=== PATIENT | male | born 1990 | race Caucasian/White ===

== ENCOUNTER 2017-04-17 08:54 | Emergency (ER) | payer SELFPAY ==
--- NOTE | 2017-04-17 09:19 | ERNOTE ---
Syncope ER HPI Stated Complaint: PASSED OUT Source: patient Exam Limitations: no limitations Immunizations: IMMUNIZATION HX Immunizations Up to Date No History of Influenza Vaccine No Hx Pneumococcal Vaccination No Allergies/Adverse Reactions: Allergies No Known Allergies Allergy (Verified 04/17/17 09:32) Home Medications: HOME MEDICATIONS NK [No Home Medication] 04/17/17 [Last Taken Unknown] - History of Present Illness Narrative: Patient has had recurrent syncopal episodes over the last three days. He does not feel the episodes coming on, does not remember what happens before but finds himself waking up on the floor in a different room. He lives by himself and nobody has observed the episodes, not sure how long he might be out, this never happened to him prior. Episodes have not occurred at work. 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 for two weeks he has had intermittent right sided chest pain, work with palpation and laying on that side. Symptoms prior to episode: Present: unknown Location of Injury: Present: none Current Symptoms: Present: back to normal Prior Treament: Denies: similar symptoms before Review of Systems - Review of Systems Constitutional: Absent: recent illness, fever EYE: Absent: vision changes ENT: Absent: nose congestion, sore throat Respiratory: Absent: shortness of breath, cough Cardiology: Present: See HPI, chest pain. Absent: palpitations Gastrointestinal/Abdominal: Absent: nausea, vomiting, diarrhea, abdominal pain Genitourinary: Present: no symptoms reported Musculoskeletal: Absent: back pain, neck pain Skin: Absent: rash Neurological: Absent: headache, weakness, numbness - Patient's Past Medical History Patient History - Medical: No pertinent hx Patient History - Cardiac/Respiratory: No pertinent hx Patient History - Cancer: No Hx of Cancer Patient History - Surgical Procedures: Other Patient History - Other: None - Family History Mother Family History - Medical: No pertinent hx Father Family History - Medical: No pertinent hx - Social History Living Situations: home Abuse History: No History of abuse Psych History: No pertinent hx Smoking Status: Current every day smoker Alcohol Use: occasionally Drug Use: none - Immunizations Immunizations Up to Date: No Hx Pneumococcal Vaccination: No History of Influenza Vaccine: No Physical Exam - Physical Exam General Appearance: Present: wd/wn, alert, no apparent distress Head Exam: Present: normal inspection, no evidence of injury Eye Exam: Normal inspection: bilateral, PERRL: bilateral Ears, Nose, Throat: Present: normal ENT inspection, normal pharynx Neck: Present: normal inspection, nontender, supple, full range of motion Respiratory: Present: no respiratory distress, no accessory muscle use, lungs clear, decreased breath sounds Cardiovascular/Chest: Present: regular rate, rhythm, no murmur Gastrointestinal/Abdominal: Present: normal bowel sounds, nontender, nondistended, soft Neurological Exam: Present: alert, oriented, normal mood/affect, no motor/ sensory deficits Skin Exam: Present: normal color, warm/dry ED Progress - Results and Orders Patient's Lab Results:: I have reviewed the patient's lab results. - Vital Signs Patient's Vital Signs:: I have reviewed the patient's vital signs. Vital Signs: Vital Signs 04/17/17 08:56 Temperature 37.0 C Pulse Rate 74 Respiratory 16 Rate Blood Pressure 122/89 O2 Sat by Pulse 100 Oximetry - EKG EKG: NSR, other - ST elevation, probably early repolarisation, similar to 05/2016 EKG read: Interp. by me - X-Ray X-Ray #1 X-Ray: chest - hyperinflated, no acute Interpretation: Reviewed by me - Progress/Reassessment Chief Complaint: Syncopal Episode Progress Note-Subjective: 04/17/17 11:03 discussed results with patient and family, patient has had no symptoms 04/17/17 11:06 message to family medicine clinic to get appointment, will call back after talking to Sera Ponce Departure Clinical Impression: Syncope Qualifiers: Syncope type: unspecified Qualified Code(s): R55 - Syncope and collapse - Departure Disposition: Home self-care Condition: Good Instructions: Syncope, [id number], Form - Excuse from Work, School, or Physical Activity Additional Instructions: we will try to get you an appointment in the family medicine clinic
--- OUTSIDE RECORDS SUMMARY | 2017-04-17 09:29 | XMS REPORT | CCD ---
:1990 Author Name SALUD TORRES Address [address] Unavailable [place], [place] [id number] Care Team Providers Name Role Phone LINDA NATHAN Attending Physician Unavailable Vital Signs Unknown or Not Available. Allergies Allergy Code Allergy Type Reaction Status No Known Drug Allergies 0 No known drug allergies Active Procedures Procedure Code Procedure Type Date SKEL XRAY-ANKLE & FOOT 8828 ICD-9 CM, Volume 3 01/19/2015 ANKLE 3VWS LT [id number] SNOMED CT 01/19/2015 History of Immunizations Unknown or Not Available. Problems Unknown or Not Available. Results Unknown or Not Available. Active Medications Unknown or Not Available. Medications Administered During Visit Unknown or Not Available. Encounters Encounter Diagnosis Diagnosis Code Start Date JOINT PAIN-ANKLE 58510 01/19/2015 Social History Smoking Status Code Start Date End Date Current every day smoker [id number] 09/30/1999 Patient Decision Aids Unknown or Not Available. Discharge Instructions You were admitted to [facility] on 01/19/2015 with a principal diagnosis of JOINT PAIN-ANKLE. You had the following procedures done:SKEL XRAY-ANKLE & FOOT You were discharged from [facility] on 01/19/2015. Should you have any questions prior to discharge, please contact a member of your healthcare team. If you have left the hospital and have any questions, please contact your primary care physician. Chief Complaint and Reason For Visit Unknown or Not Available. Function Status Unknown or Not Available. Plan of Care Unknown or Not Available. Referral/Transition of Care Unknown or Not Available.
--- OUTSIDE RECORDS SUMMARY | 2017-04-17 09:29 | XMS REPORT | CCD ---
:1990 Author Name SALUD TORRES Address [address] Unavailable [place], [place] [id number] Care Team Providers Name Role Phone LINDA NATHAN Attending Physician Unavailable Vital Signs Unknown or Not Available. Allergies Allergy Code Allergy Type Reaction Status No Known Drug Allergies 0 No known drug allergies Active Procedures Procedure Code Procedure Type Date SKEL XRAY-WRIST & HAND 8823 ICD-9 CM, Volume 3 06/23/2015 WRIST 3 VWS [address] [id number] SNOMED [address] 06/23/2015 History of Immunizations Unknown or Not Available. Problems Unknown or Not Available. Results Unknown or Not Available. Active Medications Unknown or Not Available. Medications Administered During Visit Unknown or Not Available. Encounters Encounter Diagnosis Diagnosis Code Start Date JOINT PAIN-FOREARM [id number] 06/23/2015 Social History Smoking Status Code Start Date End Date Current every day smoker [id number] 09/30/1999 Patient Decision Aids Unknown or Not Available. Discharge Instructions You were admitted to [facility] on 06/23/2015 with a principal diagnosis of JOINT PAIN-FOREARM. You had the following procedures done:SKEL XRAY-WRIST & HAND You were discharged from [facility] on 06/23/2015. Should you have any questions prior to [...]
[2017-04-17 09:45] LABS: Hemoglobin 17.1 gm/dL (13.5-18.0); Mean Cell Volume 84.3 fl (78-100); Mean Corpuscular Hemoglobin 28.8 pg (27-31); Mean Corpuscular Hgb Conc 34.2 g/dl (32-36); Mean Platelet Volume 10.1 fl (6.0-9.5); Neutrophil # 3.8 K/mm3 (1.3-6.0); Neutrophil % 63.2 % (42-75.0); Platelet Count 235 K/mm3 (150-450); Red Blood Count 5.93 M/mm3 (4.7-6.0); Red Cell Distribution Width 12.8 % (11.5-14.0); White Blood Count 6.1 K/mm3 (4.0-10.5)
[2017-04-17 09:47] LABS: Urine Bilirubin Negative (NEGATIVE); Urine Blood Negative /ul (NEGATIVE); Urine Ketone Negative (NEGATIVE); Urine Nitrite Negative (NEGATIVE); Urine Protein Negative (NEGATIVE); Urine Specific Gravity 1.025 SP.GR. (1.005-1.030); Urine Urobilinogen Normal (NORMAL)
[2017-04-17 09:54] LABS: Urine Appearance Clear; Urine Bacteria None Seen; Urine Color Yellow; Urine RBC None Seen /hpf (0-5); Urine WBC 0-5 /hpf (0-5)
[2017-04-17 10:00] LABS: ALT 17 U/L (19-67); AST 14 U/L (0-48); Albumin * 4.4 gm/dl (3.4-5.0); Alkaline Phosphatase * 59 U/L (50-170); Anion Gap 11.3 mmol/L (6.8-13.8); BUN/Creatinine Ratio 7.8 (9.0-21.6); Bilirubin, Total 0.4 mg/dL (0.0-1.1); Blood Urea Nitrogen 9 mg/dL (6-23); Ca. Corrected For Albumin 8.7 mg/dL (8.4-10.2); Calcium * 9.3 mg/dL (7.9-10.9); Carbon Dioxide 29.6 mmol/L (24-32.6); Chloride 104 mmol/L (97-106); Glucose * 91 mg/dL (70-110); Potassium 4.9 mmol/L (3.4-4.6); Sodium 140 mmol/L (132-142); Total Protein 8.1 gm/dL (6.2-8.2); Troponin I Less than 0.017 ng/ml (0.00-0.10)
[2017-04-17 10:02] LABS: Cocaine Ur Negative (NEGATIVE); Urine Barbiturate Negative (NEGATIVE); Urine Benzodiazepines Negative (NEGATIVE); Urine Opiates Negative (NEGATIVE); Urine PCP Negative (NEGATIVE); Urine THC Negative (NEGATIVE)
[2017-04-17 11:02] VITALS: BP 122/93
== END 2017-04-17 11:14 | disposition home or self-care (01) ==
LOC: ER 08:54
DX: R55 Syncope and collapse (principal); F17.200 Nicotine dependence, unspecified, uncomplicated
CPT/HCPCS: 36415; 71020; 80053; 80307; 81001; 84484; 85025; 93005; 99282; G0481

== ENCOUNTER 2017-06-02 02:56 | Emergency (ER) | payer SELFPAY ==
[2017-06-02] MEDS ORDERED: NORMAL SALINE 1,000 ML IV ONE (03:10)
[2017-06-02 03:18] LABS: Hematocrit 41.3 % (42.0-52.0); Hemoglobin 14.3 gm/dL (13.5-18.0); Mean Cell Volume 82.9 fl (78-100); Mean Corpuscular Hemoglobin 28.7 pg (27-31); Mean Corpuscular Hgb Conc 34.6 g/dl (32-36); Mean Platelet Volume 10.1 fl (6.0-9.5); Neutrophil % 73.5 % (42-75.0); Platelet Count 189 K/mm3 (150-450); Red Blood Count 4.98 M/mm3 (4.7-6.0); Red Cell Distribution Width 12.1 % (11.5-14.0); White Blood Count 5.5 K/mm3 (4.0-10.5)
[2017-06-02 03:36] LABS: ALT 12 U/L (19-67); AST 10 U/L (0-48); Albumin * 3.7 gm/dl (3.4-5.0); Alkaline Phosphatase * 55 U/L (50-170); Anion Gap 13.8 mmol/L (6.8-13.8); BUN/Creatinine Ratio 7.1 (9.0-21.6); Bilirubin, Total 0.3 mg/dL (0.0-1.1); Blood Urea Nitrogen 7 mg/dL (6-23); Calcium * 8.1 mg/dL (7.9-10.9); Chloride 105 mmol/L (97-106); Glucose * 115 mg/dL (70-110); Potassium 3.8 mmol/L (3.4-4.6); Salicylate Less than 2.8 mg/dL (2.8-20.0); Sodium 141 mmol/L (132-142); Total Protein 6.9 gm/dL (6.2-8.2)
[2017-06-02 03:37] LABS: Troponin I Less than 0.017 ng/ml (0.00-0.10)
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
[2017-06-02 04:04] LABS: Urine Bilirubin Negative (NEGATIVE); Urine Blood Negative /ul (NEGATIVE); Urine Ketone Negative (NEGATIVE); Urine Nitrite Negative (NEGATIVE); Urine Protein Negative (NEGATIVE); Urine Specific Gravity <=1.005 SP.GR. (1.005-1.030); Urine Urobilinogen Normal (NORMAL); Urine pH 6.5 pH (5.0-7.0)
[2017-06-02 04:11] LABS: Urine Appearance Clear; Urine Bacteria None Seen; Urine Color Colorless; Urine RBC None Seen /hpf (0-5); Urine WBC None Seen /hpf (0-5)
[2017-06-02 04:12] LABS: Cocaine Ur Negative (NEGATIVE); Urine Barbiturate Negative (NEGATIVE); Urine Benzodiazepines Negative (NEGATIVE); Urine Opiates Negative (NEGATIVE); Urine PCP Negative (NEGATIVE); Urine THC Negative (NEGATIVE)
[2017-06-02 05:29] VITALS: BP 129/76
== END 2017-06-02 05:38 | disposition home or self-care (01) ==
LOC: ER 02:56
PROC: 4A033R1 Measurement of Arterial Saturation, Peripheral, Percutaneous Approach (ICD-10-PCS; principal; 2017-06-02)
DX: R41.0 Disorientation, unspecified (principal); F17.200 Nicotine dependence, unspecified, uncomplicated
CPT/HCPCS: 36415; 36600; 70450; 71250; 72125; 80053; 80307; 81001; 82803; 84484; 85025; 93005; 99284; G0480; G0481

== ENCOUNTER 2017-07-19 10:39 | Emergency (ER) | payer SELFPAY ==
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
[2017-07-19 11:20] LABS: Hematocrit 42.7 % (42.0-52.0); Mean Cell Volume 82.8 fl (78-100); Mean Corpuscular Hemoglobin 29.1 pg (27-31); Mean Corpuscular Hgb Conc 35.1 g/dl (32-36); Mean Platelet Volume 9.9 fl (6.0-9.5); Neutrophil # 3.6 K/mm3 (1.3-6.0); Neutrophil % 61.9 % (42-75.0); Platelet Count 240 K/mm3 (150-450); Red Blood Count 5.16 M/mm3 (4.7-6.0); Red Cell Distribution Width 12.5 % (11.5-14.0); White Blood Count 5.9 K/mm3 (4.0-10.5)
[2017-07-19 11:33] LABS: Albumin * 4.1 gm/dl (3.4-5.0); Anion Gap 7.6 mmol/L (6.8-13.8); BUN/Creatinine Ratio 16.9 (9.0-21.6); Bilirubin, Total 0.4 mg/dL (0.0-1.1); Ca. Corrected For Albumin 8.3 mg/dL (8.4-10.2); Calcium * 8.7 mg/dL (7.9-10.9); Carbon Dioxide 29.5 mmol/L (24-32.6); Potassium 4.1 mmol/L (3.4-4.6); Total Protein 7.3 gm/dL (6.2-8.2)
[2017-07-19 11:36] VITALS: BP 136/81
[2017-07-19 11:48] LABS: Cocaine Ur Negative (NEGATIVE); Urine Barbiturate Negative (NEGATIVE); Urine Benzodiazepines Negative (NEGATIVE); Urine PCP Negative (NEGATIVE); Urine THC Negative (NEGATIVE)
[2017-07-19 11:59] LABS: Urine Opiates Negative (NEGATIVE)
== END 2017-07-19 12:13 | disposition home or self-care (01) ==
LOC: ER 10:39
DX: B34.9 Viral infection, unspecified (principal)

== ENCOUNTER 2017-08-06 12:39 | Emergency (ER) | payer SELFPAY ==
[2017-08-06] MEDS ORDERED: KETOROLAC TROMETHAMINE 30 MG/ML VIAL IV ONE (12:57)
--- NOTE | 2017-08-06 13:00 | ERNOTE ---
Chest Pain/Cardiac HPI Chief Complaint: Chest Pain Time Seen by Provider: 08/06/17 12:44 Source: patient Exam Limitations: no limitations Immunizations: IMMUNIZATION HX Immunizations Up to Date No History of Influenza Vaccine No Hx Pneumococcal Vaccination No Allergies/Adverse Reactions: Allergies No Known Allergies Allergy (Verified 07/19/17 10:45) Home Medications: HOME MEDICATIONS Doxycycline Monohydrate 100 mg PO BID #20 tablet 08/06/17 [Last Taken Unknown] Naproxen [Naprosyn] 500 mg PO BID #60 tablet 08/06/17 [Last Taken Unknown] Narrative: Patient presents with primarily right-sided chest pain, he states the pain is worse with a deep breath and if he coughs. Onset of pain was 2-3 hours ago and is moderate in severity. Timing: constant Severity/Quality: moderate, other - pleuritic Location: other - right chest Chest Pain Radiation: no radiation Activities at Onset: none Modifying Factors - Improves: Present: nothing Modifying Factors - Worsens: Present: nothing Associated Symptoms: Present: denies symptoms Prior Chest Pain/Cardiac Workup: Reports: no prior cardiac workup Review of Systems - Review of Systems Constitutional: Present: See HPI EYE: Present: no symptoms reported ENT: Present: no symptoms reported Respiratory: Present: See HPI Cardiology: Present: See HPI Gastrointestinal/Abdominal: Present: no symptoms reported Genitourinary: Present: no symptoms reported Musculoskeletal: Present: no symptoms reported Skin: Present: no symptoms reported Neurological: Present: no symptoms reported Endocrine: Present: no symptoms reported Hematologic/Lymphatic: Present: no symptoms reported Psych: Present: no symptoms reported - Patient's Past Medical History Patient History - Medical: No pertinent hx Patient History - Cardiac/Respiratory: No pertinent hx Patient History - Cancer: No Hx of Cancer Patient History - Surgical Procedures: Other Patient History - Other: None - Family History Mother Family History - Medical: No pertinent hx Father Family History - Medical: No pertinent hx - Social History Abuse History: No History of abuse Psych History: No pertinent hx Smoking Status: Current every day smoker Have you smoked in the past 12 months: Yes Do you dip or chew tobacco: No Alcohol Use: occasionally Drug Use: none - Immunizations Immunizations Up to Date: No Hx Pneumococcal Vaccination: No History of Influenza Vaccine: No Physical Exam - Physical Exam General Appearance: Present: wd/wn, alert, mild distress Head Exam: Present: normal inspection Eye Exam: Normal inspection: bilateral, PERRL: bilateral Ears, Nose, Throat: Present: normal ENT inspection, sinus pain/drainage, normal pharynx Neck: Present: normal inspection, nontender Respiratory: Present: no respiratory distress, normal breath sounds, no accessory muscle use, chest nontender, lungs clear, pleural rub - ? On the right side Cardiovascular/Chest: Present: regular rate, rhythm, no murmur, normal peripheral pulses Gastrointestinal/Abdominal: Present: normal bowel sounds, nontender, nondistended, soft, no organomegaly Rectal Exam: Present: deferred Back Exam: Present: normal inspection, normal range of motion Extremity Exam: Present: normal inspection, non-tender, no edema, normal range of motion Neurological Exam: Present: alert, oriented, normal mood/affect Skin Exam: Present: normal color, warm/dry Lymphatic Exam: Present: no adenopathy ED Progress - Results and Orders Patient's Lab Results:: I have reviewed the patient's lab results. - Vital Signs Patient's Vital Signs:: I have reviewed the patient's vital signs. Vital Signs: Vital Signs 08/06/17 08/06/17 12:45 12:51 Temperature 37.1 C Pulse Rate 83 76 Respiratory 11 L 19 Rate Blood Pressure 141/84 141/84 O2 Sat by Pulse 98 98 Oximetry - EKG EKG: NSR EKG read: Reviewed by me - X-Ray X-Ray #1 X-Ray: chest Interpretation: Reviewed by me - Progress/Reassessment Chief Complaint: Chest Pain Plan - Plan Plan: Patient is complaining of sinusitis and appears to have mild pleurisy possibly secondary to the sinusitis and smoking. Patient was started on doxycycline as well as Naprosyn for the pleuritic pain and he'll follow-up with his family physician as needed. Departure Clinical Impression: Bronchitis, Pleurisy Sinusitis Qualifiers: Sinusitis location: pansinusitis Chronicity: acute Recurrence: recurrent Qualified Code(s): J01.41 - Acute recurrent pansinusitis - Departure Disposition: Home self-care Condition: Good Instructions: Sinusitis, Adult, Giyc-cl-Senp, Pleurisy, [id number] Prescriptions: Doxycycline Monohydrate 100 mg PO BID #20 tablet Naproxen [Naprosyn] 500 mg PO BID #60 tablet
[2017-08-06] MEDS ORDERED: KETOROLAC TROMETHAMINE 30 MG/ML VIAL ONE (13:04)
[2017-08-06 13:30] LABS: Hematocrit 44.5 % (42.0-52.0); Hemoglobin 15.5 gm/dL (13.5-18.0); Mean Corpuscular Hemoglobin 29.2 pg (27-31); Mean Corpuscular Hgb Conc 34.8 g/dl (32-36); Mean Platelet Volume 9.7 fl (6.0-9.5); Neutrophil # 7.4 K/mm3 (1.3-6.0); Neutrophil % 79.1 % (42-75.0); Platelet Count 245 K/mm3 (150-450); Red Cell Distribution Width 12.7 % (11.5-14.0); White Blood Count 9.3 K/mm3 (4.0-10.5)
[2017-08-06 14:07] LABS: ALT 19 U/L (19-67); AST 17 U/L (0-48); Albumin * 4.3 gm/dl (3.4-5.0); Alkaline Phosphatase * 60 U/L (50-170); Anion Gap 12.9 mmol/L (6.8-13.8); BUN/Creatinine Ratio 12.9 (9.0-21.6); Bilirubin, Total 0.4 mg/dL (0.0-1.1); Blood Urea Nitrogen 12 mg/dL (6-23); Ca. Corrected For Albumin 8.6 mg/dL (8.4-10.2); Calcium * 9.2 mg/dL (7.9-10.9); Carbon Dioxide 29.9 mmol/L (24-32.6); Chloride 103 mmol/L (97-106); Glucose * 101 mg/dL (70-110); Magnesium 1.9 mg/dL (1.2-2.8); Potassium 3.8 mmol/L (3.4-4.6); Sodium 142 mmol/L (132-142); Total Protein 7.8 gm/dL (6.2-8.2)
[2017-08-06 14:08] LABS: Troponin I Less than 0.017 ng/ml (0.00-0.10)
[2017-08-06 14:55] VITALS: BP 127/91
== END 2017-08-06 14:40 | disposition home or self-care (01) ==
LOC: ER 12:39
DX: J40 Bronchitis, not specified as acute or chronic (principal); R09.1 Pleurisy; J01.41 Acute recurrent pansinusitis; F17.200 Nicotine dependence, unspecified, uncomplicated

== ENCOUNTER 2017-10-31 07:08 | Emergency (ER) | payer SELFPAY ==
[2017-10-31] MEDS ORDERED: ONDANSETRON HCL/PF 2 MG/ML VIAL IV ONE (07:31)
[2017-10-31] MEDS ORDERED: NORMAL SALINE 1,000 ML IV ONE (07:33)
--- NOTE | 2017-10-31 07:37 | ERNOTE ---
<Jacinto Archuleta - Last Filed: 10/31/17 07:56> Medical Problem HPI - General Chief Complaint: Nausea/Vomiting Time Seen by Provider: 10/31/17 07:27 Source: patient Exam Limitations: no limitations - Immun/Allergies/Home Medications Immunizations: IMMUNIZATION HX Immunizations Up to Date Yes History of Influenza Vaccine No Hx Pneumococcal Vaccination No Allergies/Adverse Reactions: Allergies No Known Allergies Allergy (Verified 07/19/17 10:45) Home Medications: HOME MEDICATIONS Doxycycline Monohydrate 100 mg PO BID #20 tablet 08/06/17 [Last Taken Unknown] Naproxen [Naprosyn] 500 mg PO BID #60 tablet 08/06/17 [Last Taken Unknown] Dicyclomine HCl [Bentyl] 10 mg PO TID PRN #12 capsule 10/31/17 [Last Taken Unknown] Magnesium Citrate 295 ml PO ONCE #1 solution 10/31/17 [Last Taken Unknown] Ondansetron HCl [Zofran] 4 mg PO Q8H PRN #6 tablet 10/31/17 [Last Taken Unknown] - History of Present History Narrative: Pt states he has not been able to keep anything down for 3 days. He tried coffee yesterday but that also came up. Timing: getting worse Severity: moderate Modifying Factors - (Worsens): Present: eating Review of Systems - Review of Systems Constitutional: Absent: recent illness, fever, chills EYE: Present: no symptoms reported ENT: Present: no symptoms reported Respiratory: Absent: shortness of breath Cardiology: Absent: chest pain Gastrointestinal/Abdominal: Present: See HPI, abdominal pain - left side. Absent: diarrhea Genitourinary: Absent: frequency, dysuria Musculoskeletal: Present: muscle pain - under ribs. Absent: back pain Skin: Absent: rash Neurological: Present: no symptoms reported Endocrine: Absent: excessive sweating, flushing Hematologic/Lymphatic: Present: no symptoms reported Psych: Present: no symptoms reported - Patient's Past Medical History Patient History - Medical: No pertinent hx Patient History - Cardiac/Respiratory: No pertinent hx Patient History - Cancer: No Hx of Cancer Patient History - Surgical Procedures: Other Patient History - Other: None - Family History Mother Family History - Medical: No pertinent hx Father Family History - Medical: No pertinent hx - Social History Living Situations: home Abuse History: No History of abuse Psych History: No pertinent hx Smoking Status: Current every day smoker Have you smoked in the past 12 months: Yes Do you dip or chew tobacco: No Alcohol Use: occasionally Drug Use: none - Immunizations Immunizations Up to Date: Yes Hx Pneumococcal Vaccination: No History of Influenza Vaccine: No Physical Exam - Physical Exam General Appearance: Present: wd/wn, alert, mild distress Head Exam: Present: normal inspection, no evidence of injury Eye Exam: Normal inspection: bilateral Ears, Nose, Throat: Present: normal ENT inspection Neck: Present: normal inspection, nontender Respiratory: Present: no respiratory distress, normal breath sounds, no accessory muscle use Cardiovascular/Chest: Present: regular rate, rhythm, no murmur Gastrointestinal/Abdominal: Present: tenderness - LLQ, abnormal bowel sounds - hyperactive, guarding - mild. Absent: distended, rebound Back Exam: Present: normal inspection, normal range of motion Extremity Exam: Present: normal inspection, normal range of motion Neurological Exam: Present: alert, oriented, normal mood/affect, no motor/ sensory deficits Skin Exam: Present: normal color, warm/dry Lymphatic Exam: Present: no adenopathy ED Progress - Vital Signs Vital Signs: Vital Signs 10/31/17 07:11 Temperature 37.0 C Pulse Rate 93 Respiratory 16 Rate Blood Pressure 122/77 O2 Sat by Pulse 98 Oximetry - Progress/Reassessment Chief Complaint: Nausea/Vomiting - Transfer of Care Physician Sign Out: Jacinto Archuleta Receiving Physician: Raghu Wilkes Pending Results: Labs, X-ray results Expected Disposition: Discharge Departure Clinical Impression: Vomiting - Departure Disposition: Home self-care Condition: Good Instructions: Nausea, Adult Additional Instructions: Rest. Clear liquids for the next 24 hours. FOllow-up with your doctor within 3 days for a re-check. Return if you change your mind about having the CT scan we discussed, if you develop fever, increased pain or if your condition worsens or changes in any way. Prescriptions: Dicyclomine HCl [Bentyl] 10 mg PO TID PRN #12 capsule PRN Reason: Pain Magnesium Citrate 295 ml PO ONCE #1 solution Ondansetron HCl [Zofran] 4 mg PO Q8H PRN #6 tablet PRN Reason: Nausea <Raghu Wilkes - Last Filed: 10/31/17 10:26> Medical Problem HPI - Immun/Allergies/Home Medications Immunizations: IMMUNIZATION HX Immunizations Up to Date Yes History of Influenza Vaccine No Hx Pneumococcal Vaccination No ED Progress - Results and Orders Patient's Lab Results:: I have reviewed the patient's lab results. - Vital Signs Patient's Vital Signs:: I have reviewed the patient's vital signs. Vital Signs: Vital Signs 10/31/17 10/31/17 10/31/17 07:11 07:15 08:15 Temperature 37.0 C 37.0 C 37.0 C Pulse Rate 93 93 76 Respiratory 16 16 16 Rate Blood Pressure 122/77 122/77 120/74 O2 Sat by Pulse 98 98 98 Oximetry - X-Ray X-Ray #1 X-Ray: abdomen Interpretation: Interp. by me X-ray Comments: I reviewed official radiology report - Progress/Reassessment Progress Note-Subjective: 10/31/17 10:24 Patient checked out to me by Dr Archuleta at am shift change. Please see his note for full H&P. X-ray shows severe constipation per radiologist. labs wnl. I re-evaluated the patient and he was feeling improved. He had mild left mid abdominal tenderness. No guarding or rebound, no peritoneal signs, non- surgical exam. I offered him a CT scan, he understands risks and benefits but declines this. He wishes to hold on having a CT and will return for this if he worsens. I discussed warning signs and reasons to return as well as the need for close f/u.
[2017-10-31] MEDS ORDERED: ONDANSETRON HCL/PF 2 MG/ML VIAL ONE (07:45)
[2017-10-31 07:54] LABS: Hematocrit 44.3 % (42.0-52.0); Hemoglobin 15.6 gm/dL (13.5-18.0); Mean Cell Volume 81.6 fl (78-100); Mean Corpuscular Hemoglobin 28.7 pg (27-31); Mean Corpuscular Hgb Conc 35.2 g/dl (32-36); Neutrophil % 65.2 % (42-75.0); Platelet Count 273 K/mm3 (150-450); Red Blood Count 5.43 M/mm3 (4.7-6.0); Red Cell Distribution Width 12.7 % (11.5-14.0); White Blood Count 6.1 K/mm3 (4.0-10.5)
[2017-10-31 08:02] LABS: Anion Gap 11.7 mmol/L (6.8-13.8); BUN/Creatinine Ratio 11.3 (9.0-21.6); Bilirubin, Total 0.4 mg/dL (0.0-1.1); Ca. Corrected For Albumin 8.7 mg/dL (8.4-10.2); Carbon Dioxide 28.1 mmol/L (24-32.6); Potassium 3.8 mmol/L (3.4-4.6); Total Protein 7.7 gm/dL (6.2-8.2)
[2017-10-31] MEDS ORDERED: DICYCLOMINE HCL 10 MG/ML AMPUL IM ONE ×2 (08:42)
[2017-10-31 09:21] VITALS: BP 120/74
[2017-10-31 09:51] LABS: Urine Appearance Clear; Urine Bacteria TRACE; Urine Bilirubin Negative (NEGATIVE); Urine Blood Negative /ul (NEGATIVE); Urine Color Yellow; Urine Ketone Negative (NEGATIVE); Urine Nitrite Negative (NEGATIVE); Urine Protein Negative (NEGATIVE); Urine RBC None Seen /hpf (0-5); Urine Specific Gravity 1.025 SP.GR. (1.005-1.030); Urine Urobilinogen Normal (NORMAL); Urine WBC 0-5 /hpf (0-5)
== END 2017-10-31 10:25 | disposition home or self-care (01) ==
LOC: ER 07:08
DX: K59.00 Constipation, unspecified (principal); R11.10 Vomiting, unspecified; F17.200 Nicotine dependence, unspecified, uncomplicated
CPT/HCPCS: 36415; 74019; 80053; 81001; 82150; 83690; 85025; 96372; 96374; 99284; J2405

== ENCOUNTER 2017-12-16 12:15 | Day surgery (SDC) | payer OTHER ==
[~2017-12-16 12:15] MED LIST: RINGER'S SOLUTION,LACTATED 1,000 ML IV PRN; ceFAZolin SODIUM 1 GM VIAL IV PRN
[2017-12-16] MEDS ORDERED: RINGER'S SOLUTION,LACTATED 1,000 ML IV ONE (13:15)
--- NOTE | 2017-12-16 14:44 | POSTOP NO ---
Date of Surgery: 12/16/17 Patient Tolerated the Procedure: Well Post Operative Diagnosis/Procedures: Gluing Machine Feeder: Truong Damon PA-C Post-operative Diagnosis: Retained foreign body right posterior ankle Finding: Above Procedure: Removal foreign body right posterior ankle Estimated Blood Loss: Minimal Specimens: Foreign body for disposal
[2017-12-16] MEDS ORDERED: BUPIVACAINE HCL 50 ML VIAL IJ ONE (14:45)
--- NOTE | 2017-12-16 14:47 | OR ---
Operative Report - Dictated Report Narrative: Date: 12/16/2017 Surgeon: Aram Sutton M.D. Bellman Captain: Truong Damon PA-C Preoperative diagnosis: Foreign body right posterior ankle Postoperative diagnosis: Foreign metallic body right posterior ankle Operation: 1 - Removal of foreign body right posterior ankle 2 - Intraoperative interpretation of x-rays Retained implants: None Anesthesia: General Plus local Tourniquet time: 5 Minutes at 250 mmHg Estimated blood loss: Minimal Drains: None Specimen: Implants for disposal Complications: None Indications: Mr. Rosen is a 26-year-old gentleman who was at work when he had a nail gun puncture his right posterior Achilles. The nail was removed however there was retained metallic foreign body which was causing pain. He was seen in the clinic and discuss the options for treatment. He wished to proceed with surgical removal of foreign body. The risks and benefits alternatives were discussed. Risks of , blood clots, bleeding, infection, nerve/tendon/ blood vessel injury, persistent pain, wound complications, and need for additional procedures were discussed. Consent was obtained in the clinic. Procedure: After marking the correct extremity in the preoperative holding area, the patient was taken to the operating room. A timeout was performed. IV antibiotics consisting of Ancef were administered. Adequate anesthesia was placed. The extremity was then prepped and draped in standard sterile fashion. Utilizing the mini C-arm for guidance, sharp dissection was carried through the skin after exsanguinating extremity and inflating tourniquet. The foreign body was noted to be in the subcutaneous tissue and was removed without any complications without having to disrupt or encounter of the Achilles tendon, sural nerve, or any other vascular tissues. Once the foreign body was removed , the wound was thoroughly irrigated. The skin was closed with 4-0 nylon. Final images were obtained with mini C-arm. Sterile dressings of Xeroform, 4 x 4, soft roll, Coban. 0.5% Marcaine without epinephrine was infused into the skin edges prior to placing dressings. All sponge, needle, sharp, and instrument counts were correct prior to closing the wound. The patient was awoken and transferred to the postanesthesia care in stable condition.
[2017-12-16 16:04] VITALS: BP 116/82
== END 2017-12-16 12:16 | disposition home or self-care (01) ==
LOC: AMB 12:15
PROVIDERS: ATTEND Orthopaedic Surgery
PROC: 0JCQ0ZZ Extirpation of Matter from Right Foot Subcutaneous Tissue and Fascia, Open Approach (ICD-10-PCS; principal; 2017-12-16)
DX: M79.5 Residual foreign body in soft tissue; S91.0 Open wound of ankle; Y99.0 Civilian activity done for income or pay; Z68.21 Body mass index [BMI] 21.0-21.9, adult; W29.4XXD Contact with nail gun, subsequent encounter; F17.210 Nicotine dependence, cigarettes, uncomplicated